=== PATIENT | male | born 1985 | race Caucasian/White ===

== ENCOUNTER → 2019-08-12 15:29 | Outpatient (CLI) | payer OTHER, SELFPAY ==
--- NOTE | 2019-08-12 14:20 | VAS_PTH ---
PATIENT: JENN SANCHEZ LOC: [facility] U#:[id number] AGE/SX: 39/M ROOM: RE08/12/[address]: Dr. Vasiliy Bradley MD : 1985 BED: DIS: SPEC #: [id number] RECD: 08/12/19 15:21 STATUS: MORGAN COLLEEN #: [id number] KAVYA: 08/12/19 14:[address]: Vasiliy Bradley DEPT: SURGICAL PATHOLOGY RECD BY: Immanuel Choudhary ENTERED: 08/15/19 08:22 SP TYPE: VAS OTHR DR: Dr. Jesus Mendoza MD Tissues: A - Vas deferens, NOS B - Vas deferens, NOS Procedures: Surgery Specimen Level II HEADER OPERATION: Bilateral partial vasectomy PRE-OP DIAGNOSIS: Sterilization TISSUE SUBMITTED: A - Right vas deferens, B - Left vas deferens MICROSCOPIC DIAGNOSIS A. Right vas deferens, segmental vasectomy: Complete segment of vas deferens with no pathologic change. B. Left vas deferens, segmental vasectomy: Complete segment of vas deferens with no pathologic change. AM:pedro 08/16/19 MICROSCOPIC DESCRIPTION Slides are reviewed. GROSS DESCRIPTION A - Received is one container designated right vas deferens. The specimen consists of a cylindrical segment of pink-campbell soft tissue measuring 1 cm in length and 0.2 cm in maximum diameter. The specimen is totally submitted in one cassette for postfixation sectioning. B - Received is one container designated left vas deferens. The specimen consists of a cylindrical segment of pink-campbell soft tissue measuring 1 cm in length and 0.2 cm in maximum diameter. The specimen is totally submitted in one cassette for postfixation sectioning. / AM:pedro 08/15/19 TC:4 [facility]: [id number] x2
[2019-08-12 14:25] VITALS: BMI 28.5
== END ==
PROVIDERS: PCP Family Medicine; Referring Provider Surgery; Visit Provider Surgery
DX: Z30.2 Encounter for sterilization (principal)
CPT/HCPCS: 88302

== ENCOUNTER → 2019-09-16 14:56 | Outpatient (CLI) | payer OTHER, SELFPAY ==
[2019-08-12 14:25] VITALS: BMI 28.5
[2019-09-19 15:39] LABS: Semen Analysis Post Vas PRESENT
== END ==
PROVIDERS: PCP Family Medicine; Referring Provider Surgery; Visit Provider Surgery
DX: Z30.2 Encounter for sterilization (principal)
CPT/HCPCS: 89321

== ENCOUNTER → 2019-10-24 11:43 | Outpatient (CLI) | payer OTHER, SELFPAY ==
[2019-08-12 14:25] VITALS: BMI 28.5
[2019-10-25 12:12] LABS: Semen Analysis Post Vas ABSENT
== END ==
PROVIDERS: PCP Family Medicine; Referring Provider Surgery; Visit Provider Surgery
DX: Z30.2 Encounter for sterilization (principal)
CPT/HCPCS: 89321

== ENCOUNTER → 2019-10-28 12:08 | Outpatient (CLI) | payer OTHER, SELFPAY ==
[2019-08-12 14:25] VITALS: BMI 28.5
[2019-10-28 15:17] LABS: Semen Analysis Post Vas ABSENT
== END ==
PROVIDERS: PCP Family Medicine; Referring Provider Surgery; Visit Provider Surgery
DX: Z30.2 Encounter for sterilization (principal)
CPT/HCPCS: 89321

== ENCOUNTER 2023-02-04 10:57 | Emergency (ER) | payer OTHER, SELFPAY ==
[2023-02-04 10:58] VITALS: BP 128/83; PULSE 74; RESP 16; TEMP 36.2; O2SAT 100; BMI 29.9
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
[2023-02-04 12:09] VITALS: BP 139/75; PULSE 62; RESP 15; O2SAT 98
== END 2023-02-04 12:10 | disposition home or self-care (01) ==
PROVIDERS: Emergency Provider Emergency Medicine; PCP Family Medicine; Visit Provider Emergency Medicine
DX: S39.012A Strain of muscle, fascia and tendon of lower back, initial encounter (principal); V49.40XA Driver injured in collision with unspecified motor vehicles in traffic accident, initial encounter
CPT/HCPCS: 72100; 99282

== ENCOUNTER 2023-05-25 18:39 | Emergency (ER) | payer OTHER, SELFPAY ==
[2023-05-25 18:41] VITALS: BP 130/81; PULSE 88; RESP 18; TEMP 36.6; O2SAT 98; BMI 32.1
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
[2023-05-25] MEDS: Lidocaine/Epi/Tetracaine 50 ML 1 APPLIC TOPICAL (21:16)
[2023-05-25] MEDS: Diphth,Pertuss(Acell),Tet Vac 0.5 ML Vial IM (21:16)
== END 2023-05-25 22:14 | disposition home or self-care (01) ==
PROVIDERS: Emergency Provider Emergency Medicine; PCP Family Medicine; Visit Provider Emergency Medicine
DX: S01.81XA Laceration without foreign body of other part of head, initial encounter (principal); Z23 Encounter for immunization; X58.XXXA Exposure to other specified factors, initial encounter
CPT/HCPCS: 12011; 90471; 90715; 99283